=== PATIENT | female | born 1955 | race Caucasian/White ===

== ENCOUNTER 2023-10-09 15:04 | Inpatient (IN) | payer MEDICARE ==
[~2023-10-09] VITALS: Ht 165.1 cm; Wt 59.2 kg
--- NOTE | 2023-10-09 16:16 | NUR ---
PT ARRIVED FROM [facility] VIA POV WITH AT SIDE.WHEELCHAIR TO ROOM. WATCH, PHONE/LABORER SHELLFISH PROCESSING, AND UPPER DENTURES WITH PT. HOSPITAL RULES/ORIENTATION GONE OVER, NO QUESTIONS. LSO BRACE ON. PATCH ON L SIDE OF ABDOMEN. ASSESMENT COMPLETE. PT TO BATHROOM 1 ASSIST. PT BACK TO CHAIR FOR DINNER. CALL LIGHT WITHIN REACH, CHAIR ALARM ON.
[2023-10-09] MEDS ORDERED: ROXICODONE 55 MG/TAB PO (16:27)
[2023-10-09] MEDS ORDERED: POTASSIUM CH2 MEQ/ML PO (16:28)
[2023-10-09] MEDS ORDERED: ALDACTONE100 M1 PO (16:29)
[2023-10-09] MEDS ORDERED: oxyCODONE 5 MG TAB PO PRN (16:30)
[2023-10-09] MEDS ORDERED: Acetaminophen 325 MG TAB PO PRN (16:30)
[2023-10-09] MEDS ORDERED: Polyethylene Glycol 3350 Powder 17 GM PACKET PO PRN (16:30)
[2023-10-09] MEDS ORDERED: Cyclobenzaprine 10 MG TAB PO PRN (17:00)
--- NOTE | 2023-10-09 17:00 | NUR ---
PT REPORTED PAIN IN RIGHT WRIST, X-RAY SHOWED ARTHRITIS. BRACE APPLIED FOR COMFORT.
[2023-10-09 18:07] VITALS: BP 109/68
--- NOTE | 2023-10-09 19:00 | NUR ---
Report received from Tomas CAICEDO.
--- NOTE | 2023-10-09 23:55 | NUR ---
Patient has been resting in bed with eyes closed until this time. Up without assist and bedalarm alarming/patient already in bathroom when HAND LASTER into room. Voids and back to bed. Reminders given to call and await for assist to get up to prevent further falls and injury. Reports 10/10 pain to left rib cage and grimaces with movement. Is able to position self slowly up in bed. Roxycodone given for pain. Chocolate ensure given, states she didn't eat much for supper.
--- NOTE | 2023-10-10 01:30 | NUR ---
Patient now resting with eyes closed.
--- NOTE | 2023-10-10 06:04 | NUR ---
Patient up to the bathroom with walker and steady gait. Moderate tremors noted to upper extremities. See vitals. Reports pain 10/10 on pain scale and roxycodone 5 mg given. Reports acceptable pain is 0. Reviewed that with her FX she will have some pain. States yes to resting well this noc. No redness to buttucks noted this am. Rests back in bed.
[2023-10-10 06:18] VITALS: BP 112/79
[2023-10-10 07:51] LABS: BASO # 0.03 K/mm3 (0.02-0.10); EOS # 0.06 K/mm3 (0.04-0.40); EOS % 1.9 % (1.0-5.0); HEMATOCRIT 26.5 % (37.0-47.0); HEMOGLOBIN 8.8 g/dL (12.5-16.0); LYMPH# 0.31 K/mm3 (1.50-4.00); MEAN CELL VOLUME 99 fl (78-100); MEAN CORPUSCULAR HEMOGLOBIN 33 pg (27-31); MEAN CORPUSCULAR HGB CONC 33 g/dL (33-37); MEAN PLATELET VOLUME 8.8 fl (7.4-10.4); MONO # 0.64 K/mm3 (0.20-0.80); NEU # 2.11 K/mm3 (1.40-6.50); PLATELET COUNT 125 K/mm3 (130-400); RED BLOOD COUNT 2.68 M/mm3 (4.10-5.30); RED CELL DISTRIBUTION WIDTH 13.8 % (11.5-14.5); WHITE BLOOD COUNT 3.2 K/mm3 (4.8-10.8)
[2023-10-10] MEDS ORDERED: Magnesium Oxide 400 MG TAB PO SCH (08:00)
--- NOTE | 2023-10-10 08:00 | NUR ---
PT UP IN CHAIR FOR BREAKFAST. STATED THAT SHE SEPT WELL BUT WAS IN A LOT OF PAIN. PRN PAIN MEDICATION GIVEN. RATED 10/10. MEDICATION TAKEN PO IN APPLESAUCE DUE TO SOME DIFFICULTIES YESTERDAY WITH SWALLOWING PILLS, NO ISSUES. ASSESMENT COMPLETE. WRIST BRACE ON RIGHT WRIST, PT STATED THAT IT WAS FEELING A LOT BETTER THAN YESTERDAY. AT THIS NO OTHER WANTS OR NEEDS. PT LEFT IN CHAIR WITH ALARM ON, CALL LIGHT WITHIN REACH.
[2023-10-10 08:18] LABS: ALBUMIN 2.8 g/dL (3.4-4.8)
[2023-10-10 08:20] LABS: TOTAL PROTEIN 5.7 g/dL (6.2-8.1)
[2023-10-10 08:27] LABS: MAGNESIUM 1.7 mg/dL (1.60-2.60)
[2023-10-10 08:45] VITALS: BP 100/66
[2023-10-10] MEDS ORDERED: Multivitamin TAB PO SCH (09:00)
[2023-10-10] MEDS ORDERED: Thiamine 100 MG TAB PO SCH (09:00)
[2023-10-10] MEDS ORDERED: Folic Acid 1 MG TAB PO SCH (09:00)
[2023-10-10] MEDS ORDERED: Spironolactone 25 MG TAB PO SCH (09:00)
--- NOTE | 2023-10-10 09:00 | NUR ---
PT HEART RATE TACHY, PROVIDER NOTIFIED, MEDICATION GIVEN SEE MAY.
[2023-10-10] MEDS ORDERED: Carvedilol 3.125 MG TAB PO SCH ×2 (09:03→17:00)
[2023-10-10] MEDS ORDERED: Lidocaine 4% Topical Patch TP SCH (09:03)
[2023-10-10] MEDS ORDERED: Cyclobenzaprine 10 MG TAB PO PRN (13:11)
[2023-10-10 17:00] VITALS: BP 90/62
--- NOTE | 2023-10-10 17:00 | NUR ---
PROVIDER NOTIFIED OF BP 90/62. MEDICATION HELD, SEE MAR.
[2023-10-10 18:10] VITALS: BP 99/64
--- NOTE | 2023-10-10 19:00 | NUR ---
RECEIVED REPORT FROM MARIFER GERONIMO
--- NOTE | 2023-10-10 22:34 | NUR ---
PATIENT ALERT AND ORIENTED. TELE ON SHOWING NSR, OCCASIONALLY TACHY DEPENDING ON ACTIVITY OF PATIENT. LSO BRACE ON WHEN PATIENT IS UP. PATIENT REFUSING OT REMOVE BRACE TO RIGHT WRIST FOR SLEEP. CURRENTLY RESTING IN BED WATCHING TELEVISION. REPORTS PAIN 9/10 AND WANTS A PRN PAIN MED. ALSO WANTING ICE CREAM. CALL LIGHT IN REACH.
--- NOTE | 2023-10-11 01:06 | NUR ---
PATIENT RESTING QUIETLY IN BED. WAKES EASILY TO VERBAL STIMULI. BREATHING UNLABORED ON RA. CALL LIGHT IN REACH. BED ALARM ON
[2023-10-11 06:11] VITALS: BP 97/59
[2023-10-11 06:39] LABS: HEMATOCRIT 25.6 % (37.0-47.0); HEMOGLOBIN 8.5 g/dL (12.5-16.0); MEAN CELL VOLUME 100 fl (78-100); MEAN CORPUSCULAR HEMOGLOBIN 33 pg (27-31); MEAN CORPUSCULAR HGB CONC 33 g/dL (33-37); MEAN PLATELET VOLUME 8.3 fl (7.4-10.4); PLATELET COUNT 124 K/mm3 (130-400); RED BLOOD COUNT 2.57 M/mm3 (4.10-5.30); WHITE BLOOD COUNT 5.1 K/mm3 (4.8-10.8)
[2023-10-11 06:46] LABS: CALCIUM 8.9 mg/dL (8.3-10.5)
[2023-10-11 06:59] LABS: LYMPHOCYTE 7 % (20-51); MONOCYTE 16 % (3-10); NEUTROPHILS 77 % (42-75)
[2023-10-11 08:00] VITALS: BP 93/61
--- NOTE | 2023-10-11 11:53 | NUR ---
POTASSIUM LEVELS DISCUSSED WITH MINGES OF 4.8 AND 4.9 HE IS STILL WANTING TO HAVE POTASSIUM GIVEN AT THIS TIME.
[2023-10-11 16:34] VITALS: BP 91/59
--- NOTE | 2023-10-11 18:15 | NUR ---
Pt up to BR then returns to bed. Reports pain 10/10 to L back/ribs. Noted to have tears in eyes. Assist pt back to bed. Gave roxycodone per orders. Held coreg per parameters, BP 91/59.
--- NOTE | 2023-10-11 19:19 | NUR ---
received report from arturo fountain
--- NOTE | 2023-10-11 22:41 | NUR ---
pt alert and oriented, pt reports 10/10 pain. pt currently resting in bed after Lory pct assisted her to restroom and back to bed. pt reports irritation on right wrist brace, this nurse reviewed scan reports and notes and found that brace was for OA and was on for pt comfort. brace removed at this time and pt reported relief from irritation. pt now resting in bed with call light in reach and bed in lowest position and alarmed
--- NOTE | 2023-10-11 22:58 | NUR ---
report given to neel fountain
[2023-10-12 06:33] VITALS: BP 102/65
--- NOTE | 2023-10-12 07:16 | NUR ---
received report from wave rn
--- NOTE | 2023-10-12 08:00 | NUR ---
pt current systolic 102 and diastolic less than 70, pt has spironolactone and carvedilol ordered, provider joe would like to hold these medications at this time
[2023-10-12 08:14] VITALS: BP 102/69
--- NOTE | 2023-10-12 09:08 | NUR ---
PT ALERT AND ORIENTED X4, PT CURRENTLY RATING PAIN AT 10/10, LIDOCAINE PATCH PLACED ON LOWER LEFT SIDE OF BACK. PT WINCED AT REMOVAL OF PREVIOUS LIDOCAINE PATCH. PT REQUESTED TO MOVE TO THE BED AFTER MEDICATIONS AND ASSESSMENT. ASSESSMENT PERFORMED AND MEDICATIONS DELIVERED WITHOUT COMPLICATION. PT ASSISTED TO BED BY THIS NURSE, BED ALARMED AND CALL LIGHT IN REACH
--- NOTE | 2023-10-12 12:31 | NUR ---
pt currently tachycardic per telemetry monitoring system. pt carvedilol held this morning due to low bp. Pt current bp 109/72, this nurse reported to Provider Lynette pt status, provider lynette ordered carvedilol to be given at this time to reduce pt heart rate. verbal order repeat back to confirm
--- NOTE | 2023-10-12 13:03 | NUR ---
PT CONFUSED WHEN WOKEN FROM HER NAP, PT REPORTS 5/10 PAIN TO LOWER BACK AND RIBS. PT CONVERSED CLEARLY AND RECALLED TODAYS EVENTS WELL AFTER BEING AWAKE FOR A FEW MINUTES. MEDICATIONS DELIVERED. PT NOW RESTING IN BED WITH CALL LIGHT IN REACH, PT DENIES FURTHER NEEDS AT THIS TIME
--- NOTE | 2023-10-12 16:45 | NUR ---
PT SLEEPING WELL IN CHAIR, CALL LIGHT AT PT SIDE AND CHAIR ALARM ON. PT HAS BEEN SLEEPY MOST OF THE AFTERNOON
[2023-10-12 18:00] VITALS: BP 105/65
--- NOTE | 2023-10-12 19:06 | NUR ---
report to bon rn
[2023-10-12 20:52] VITALS: BP 105/72
--- NOTE | 2023-10-12 21:00 | NUR ---
Patient resting in bed alert and oriented at this time. HS meds along with steven reviewed and given. Was informed to give held dose of coreg at this time per Nakul RN and given. BP 105/72 HR 105.
[2023-10-13 05:29] VITALS: BP 100/68
--- NOTE | 2023-10-13 06:12 | NUR ---
Patient reports she did get sleep this noc. "Didn't hear the TV even". Flexeril given for 7 left rib cage pain.
[2023-10-13 08:00] VITALS: BP 95/61
--- NOTE | 2023-10-13 12:49 | NUR ---
PT IS NOT USING CALL LIGHT WHEN ARRIVING TO ROOM PT WAS ALMOST TO BATHROOM AND WOULD NOT STOP FOR WALKER. SHE IS UNSTEADY AND I DID TALK WITH HER ABOUT MAKING SURE SHE DID NOT FALL. SHE WAS NOT INTERESTED IN CONVERSATION.
--- NOTE | 2023-10-13 14:20 | NUR ---
PT. IS GETTING UP WITHOUT USING CALL LIGHT AND WAS IN BATHROOM ON ARRIVAL TO ROOM.
[2023-10-13 16:55] VITALS: BP 91/60
--- NOTE | 2023-10-13 18:50 | NUR ---
Pt resting in bed. I did talk with daughter and mentioned pt has not been using call light and getting up without assistance. Pt when asked states this is because of Jarod. Pt voiced she is not happy since Jarod did not come in.
--- NOTE | 2023-10-13 20:30 | NUR ---
Report from MARIFER Bar. Patient asleep, easily aroused but not interactive. Does not answer orientation questions except to say "I don't know".
--- NOTE | 2023-10-13 20:40 | NUR ---
Patient bed alarm sounding, patient sitting on the edge of bed. Refuses TLSO brace, ambulates to the bathroom with walker and SBA. Brace applied as patient sat on the toilet. Nursing attempted to ask patient orientation questions again at this time. Patient oriented to self only. Assisted back to bed. Bed alarm on and call light within reach. Instructed to call before getting up.
--- NOTE | 2023-10-13 23:00 | NUR ---
Patient bed alarm sounding, patient is again sitting on the edge of the bed. Asks to walk to the bathroom. Brace applied, patient ambulates to the bathroom with walker and SBA. Patient seems more alert than previous assessment. Orientation questions asked again. Patient oriented to self, place, situation, and year, not month. Patient assisted back to bed. States pain is 10/10. PRN oxy and tylenol given. Bed alarm on, call light within reach.
[2023-10-14 05:43] VITALS: BP 101/64
--- NOTE | 2023-10-14 11:21 | NUR ---
FACUNDO PEDRAZA NOTIFIED OF PATIENT BEING SLIGHTLY TACHYCARDIC, NEW ORDERS FOR VITAL SIGNS Q4 HOURS. PT HAS BEEN RUNNING TACHY, SO NO OTHER ORDERS AT THIS TIME.
[2023-10-14 14:13] VITALS: BP 97/63
[2023-10-14 17:47] VITALS: BP 92/65
[2023-10-14 22:08] VITALS: BP 96/59
--- NOTE | 2023-10-15 01:43 | NUR ---
Report per [facility] Pt leaned forward and unplugged SCD air tubes, then exited bed without calling, staff immediatly starting walkling to pt room but by the time staff made it to pt room pt had already left her bed without walker or back brace and walked to the restroom. pt has been thouroughly educated on the importance of calling to allow staff to assist pt to the restroom safely. Pt is noncompliant with staff education/requests for safe ambulation and back brace. [facility] has placed pt on more sensitive bed alarm level to allow staff time to reach room before pt has left the bed.
[2023-10-15 01:45] VITALS: BP 98/61
--- NOTE | 2023-10-15 03:54 | NUR ---
pt up at this time to use the restroom, jia pct attempted to place back brace on. pt states "that thing is not going on me", gait belt donned and pt assisted to restroom at this time with walker
[2023-10-15 05:54] VITALS: BP 109/68
--- NOTE | 2023-10-15 09:00 | NUR ---
Pt Ox4, VSS. Coreg held r/t DBP 68. Pt reports "moderate" pain to L back/ribs. Also noted to have firm/distended abdomen. Reports ascities is more pronounced than her "normal" and she feels it is making her SOB and increasing her pain.
[2023-10-15] MEDS ORDERED: Meloxicam 7.5 MG TAB PO SCH (10:11)
[2023-10-15 10:15] VITALS: BP 104/66
[2023-10-15 12:06] LABS: HEMATOCRIT 29.2 % (37.0-47.0); HEMOGLOBIN 9.6 g/dL (12.5-16.0); MEAN CELL VOLUME 99 fl (78-100); MEAN CORPUSCULAR HEMOGLOBIN 32 pg (27-31); MEAN CORPUSCULAR HGB CONC 33 g/dL (33-37); MEAN PLATELET VOLUME 8.4 fl (7.4-10.4); PLATELET COUNT 174 K/mm3 (130-400); RED BLOOD COUNT 2.96 M/mm3 (4.10-5.30); RED CELL DISTRIBUTION WIDTH 13.9 % (11.5-14.5); WHITE BLOOD COUNT 6.6 K/mm3 (4.8-10.8)
[2023-10-15 12:35] LABS: BAND 5 % (0-10); NEUTROPHILS 76 % (42-75)
[2023-10-15 12:36] LABS: LYMPHOCYTE 5 % (20-51); METAMYELOCYTE 1 % (0-0); MONOCYTE 11 % (3-10)
[2023-10-15 12:37] LABS: HYPOCHROMIA 1+; SCHISTOCYTES 1+
[2023-10-15 13:15] LABS: CALCIUM 9.2 mg/dL (8.3-10.5)
[2023-10-15 13:16] LABS: TOTAL PROTEIN 6.4 g/dL (6.2-8.1)
[2023-10-15 13:18] LABS: TOTAL BILIRUBIN 0.9 mg/dL (0.2-1.2)
[2023-10-15 13:38] VITALS: BP 107/69
[2023-10-15] MEDS ORDERED: Furosemide 40 MG TAB PO SCH (16:00)
[2023-10-15 17:38] VITALS: BP 111/73
--- NOTE | 2023-10-15 17:57 | NUR ---
Abdomen US complete, pt scheduled for paracentesis on Friday10/21/23. Restarted lasix. Explained to pt the need to collect I/O, she acknowledged understanding, will need to be reinforced. Pt BP 111/73 @ 1700. Pt given coreg per orders, parameters met. Pt reports it is difficult to eat/drink as abdomen is so full/distended. Pt up ambulating in halls with staff, trying to move extra fluid.
--- NOTE | 2023-10-15 19:10 | NUR ---
RECEIVED REPORT FROM MARIFER MEMBRENO
[2023-10-15 22:00] VITALS: BP 112/66
--- NOTE | 2023-10-15 22:39 | NUR ---
PATIENT IS A&O X 4. BREATHING UNLABORED ON RA. HR IRREGULAR. NO EDEMA NOTED TO BLE. ABDOMEN IS VERY DISTENDED AND FIRM. PATIENT EXITED BED WITHOUT CALLING STATING SHE WAS TIRED OF BEING IN BED. LSO APPLIED AND WALKED IN HALLS. ONCE RETURNED TO ROOM SHE CHOSE TO SIT IN RECLINER. LATER SHE THEN EXITED RECLINER WITHOUT CALLING TO GOT TO TOILET. SHE IS MILDLY AGITATED WITH STAFF FOR HELPING HER. THUS FAR SHE HAS HAD 600 CC FOUL URINE OUT. CALL LIGHT IN REACH. ALARMS ON AND WORKING.
--- NOTE | 2023-10-16 01:16 | NUR ---
PATIENT RESTING QUIETLY IN BED. BREATHING UNLABORED ON RA. CALL LIGHT IN REACH. BED ALARM ON
[2023-10-16 02:34] VITALS: BP 99/63
[2023-10-16 05:33] VITALS: BP 127/80
--- NOTE | 2023-10-16 06:22 | NUR ---
PATIENT RESTING QUIELTY IN BED. CALL LIGHT IN REACH. BED ALARM ON
--- NOTE | 2023-10-16 07:40 | NUR ---
Pt sitting up in recliner. Is refusing to wear LSO brace while OOB. Abdominal distention has decreased overnight. Abdomen not firm. No edema noted to BLE at this time. Pt reports that she still feels "bloated" but pain is decreased at this time, reports pain 5/10 to L ribs/back. Notified provider of above and that pt urine output has not increased since adding lasix yesterday. Overnight urine output 350ml + 1x unmeasured.
[2023-10-16] MEDS ORDERED: Furosemide 40 MG TAB PO ONE (08:00)
--- NOTE | 2023-10-16 09:49 | NUR ---
Spoke with Dr. Pat Kramer's nurse. She spoke with Dr. Stewart regarding appointment / follow up with ortho. Dr. Stewart would like to see her following swing bed discharge. She does not need xrays or anything at this time. If transportation is an issue for Elissa. Her care may be transfered to the [facility] in [place]. Phone number for Dr. Stewart [phone] option 1.
[2023-10-16 09:51] VITALS: BP 116/86
--- NOTE | 2023-10-16 09:54 | NUR ---
is okay to transfer care to [facility]
[2023-10-16] MEDS ORDERED: Albuterol 90 MCG/PUFF MDI IH PRN (10:00)
[2023-10-16 14:09] VITALS: BP 115/75
[2023-10-16 17:06] VITALS: BP 111/69
[2023-10-16 21:49] VITALS: BP 99/63
[2023-10-17 02:15] VITALS: BP 91/59
--- NOTE | 2023-10-17 05:14 | NUR ---
THIS AM PCT NOTED SOME DRIED BLOOD AROUND PTS MOUTH, PT WAS ASKED BY PCT IF THAT WAS NORMAL, PT STATED THAT SOMETIMES SHE BLEEDS AT NIGHT. PT IS ASYMPTOMATIC, NO CONTINUED BLEEDING NOTED. PCT PATRICIA Canada, NOTIFIED THIS RN.
[2023-10-17 05:46] VITALS: BP 100/67
[2023-10-17 07:40] LABS: BASO # 0.04 K/mm3 (0.02-0.10); EOS # 0.17 K/mm3 (0.04-0.40); EOS % 3.8 % (1.0-5.0); HEMATOCRIT 26.2 % (37.0-47.0); HEMOGLOBIN 8.7 g/dL (12.5-16.0); LYMPH# 0.37 K/mm3 (1.50-4.00); MEAN CELL VOLUME 97 fl (78-100); MEAN CORPUSCULAR HEMOGLOBIN 32 pg (27-31); MEAN CORPUSCULAR HGB CONC 33 g/dL (33-37); MEAN PLATELET VOLUME 8.3 fl (7.4-10.4); MONO # 0.71 K/mm3 (0.20-0.80); NEU # 3.05 K/mm3 (1.40-6.50); PLATELET COUNT 168 K/mm3 (130-400); RED BLOOD COUNT 2.71 M/mm3 (4.10-5.30); RED CELL DISTRIBUTION WIDTH 13.6 % (11.5-14.5); WHITE BLOOD COUNT 4.4 K/mm3 (4.8-10.8)
[2023-10-17 08:33] LABS: PH-URINE 5.5 (5.0 - 8.0); URINE APPEARANCE CLOUDY (CLEAR); URINE BILIRUBIN NEGATIVE (NEGATIVE); URINE COLOR YELLOW (YELLOW); URINE GLUCOSE NEGATIVE (NEGATIVE); URINE KETONE NEGATIVE (NEGATIVE); URINE PROTEIN(semi-quant) 1+ (NEGATIVE)
[2023-10-17 08:34] LABS: URINE BLOOD 2+ (NEGATIVE); URINE LEUKOCYTE ESTERASE 3+ (NEGATIVE); URINE NITRATE NEGATIVE (NEGATIVE)
[2023-10-17 08:36] LABS: URINE WBC >50 /hpf (0-3)
--- NOTE | 2023-10-17 08:40 | NUR ---
Pt sitting up in recliner. Is Ox4, reports pain 7/10. Pain rx given. Held Coreg for BP 100/67 per parameters. Removed and applied new lidocaine patch to L mid-back per pt instruction. Removed R wrist splint. Instructed pt to leave off until she works with therapy and to remove each night. Noted a reddened/abraised area to posterior webbed area between thumb and forefinger. Placed bandaid for protection. Obtained UA this AM for urinary frequency, urgency and burning.
[2023-10-17 10:03] VITALS: BP 103/68
[2023-10-17] MEDS ORDERED: Nitrofurantoin (Mono/Macro) 100 MG CAPSULE PO SCH (10:25)
[2023-10-17 11:28] LABS: CALCIUM 8.6 mg/dL (8.3-10.5)
[2023-10-17 12:57] LABS: MAGNESIUM 1.57 mg/dL (1.60-2.60)
[2023-10-17 13:35] VITALS: BP 116/79
[2023-10-17] MEDS ORDERED: Magnesium Oxide 400 MG TAB PO SCH (17:00)
[2023-10-17 17:05] VITALS: BP 116/73
--- NOTE | 2023-10-17 17:44 | NUR ---
Pt VS WNL this afternoon, Coreg given per orders. Pt has become more confused as day progressed, not calling for assistance, can't find phone, can't find remote. Urine resulted, started PO abx. Ambulated in halls with staff and therapy. Pain not well controlled this afternoon. PO, topical and hot/cold therapy applied. Abdomen firm, distended, pt with c/o pruritis. I/O 2490ml/2050ml.
--- NOTE | 2023-10-17 19:54 | NUR ---
Report received from Edyta CAICEDO. Patient was up ambulating in halls with ENVELOPE CUTTER at shift change. Patient is now resting with eyes closed. Bed alarm on. Call light in reach.
--- NOTE | 2023-10-17 20:40 | NUR ---
Set off bed alarm. CORRECTIONAL MAINTENANCE TECHNICIAN into intervene and take patient to BR after encouraging to wear brace and gait belt. Rests now in bed. A/O x2. States Month as July and year as 1999. Rates pain as 12/17, requests and given oxycodone, takes whole PO without difficulty. Assessment completed. Lungs CTA, diminished in bases. Denies cough. States some SOA with exertion. Has 2+ edema to R foot. Elevated on pillow, SCD's in place. Bed alarm on. Call light in reach.
[2023-10-17 22:05] VITALS: BP 98/63
[2023-10-18 01:32] VITALS: BP 97/62
--- NOTE | 2023-10-18 01:36 | NUR ---
Up to BR with assist of INVESTMENT CONSULTANT. Requests and given analgesic for reported pain 10/10 to L rib cage and back area.
--- NOTE | 2023-10-18 05:40 | NUR ---
Rested well this shift. Medication provided for pain PRN. B/P soft 90's/60's. Asymptomatic.
[2023-10-18 05:45] VITALS: BP 92/60
--- NOTE | 2023-10-18 07:01 | NUR ---
Report to Lynn CAICEDO.
--- NOTE | 2023-10-18 09:40 | NUR ---
Patient resting in chair. A&O to place, person and situation. Promted many times to take medication. Swallowed pills whole with water. LSO brace on. Reports she did not sleep well last night. Unpleasant with staff. Rising from chair without assistance and ambulating from chair to restroom. Reminded to use call light when needing assistance. Patient refusing. Encouraged to sit in chair to eat breakfast. Patient states, "why do I have to do that? Why can't I eat in bed." Ambulated SBA with walker from bed to chair. Refused to use gait belt with transfer. Encouraged to ambulate with staff, declined at this time. Chair in locked position. Call light within reach.
--- NOTE | 2023-10-18 09:46 | NUR ---
Refusing incentive spirometry
[2023-10-18 10:11] VITALS: BP 101/61
--- NOTE | 2023-10-18 10:11 | NUR ---
Chair alarm sounding. Upon entering the room, patient in bathroom. When encouraged to use call light she states, "No!" "You're all in my business." Assisted back to chair. Chair in locked position. Call light within reach.
--- NOTE | 2023-10-18 11:19 | NUR ---
Chair alarm sounding. Upon entering room patient ambulating from chair to bathroom with no assistance. Refused gait belt. Encouraged to use call button before getting up. SBA from bathroom to chair. Chair in locked position. Call light within reach.
[2023-10-18 14:00] VITALS: BP 93/60
--- NOTE | 2023-10-18 16:30 | NUR ---
Chair alarm sounding. Upon entering room, patient ambulating from chair to bathroom. Refusing to use call light when needing assistance. Nurse at bedside providing education. Encouraged to use call light. Agrees to use call light. SBA to chair. Refused gait belt. Chair in locked position. Call light within reach.
[2023-10-18 18:04] VITALS: BP 104/69
--- NOTE | 2023-10-18 19:53 | NUR ---
Refused gait belt when walking to BR from recliner and back to bed.
[2023-10-18 21:51] VITALS: BP 95/70
[2023-10-19 02:00] VITALS: BP 85/58
--- NOTE | 2023-10-19 02:34 | NUR ---
pt 0200 BP registered at 85/58, pt is asymptomatic, hx of soft to low bp, daily bp meds have been held for the last couple of days. pt denies feeling dizziness,lightheadedness or feeling faint. notified, no new orders at this time.
[2023-10-19 05:49] VITALS: BP 98/61
--- NOTE | 2023-10-19 08:01 | NUR ---
REPORT FROM MARIFER ARGUETA. PT. UP IN CHAIR WITH BRACE ON. ALERT AND ORIENTED THIS AM. DENIES ANY NEEDS OR CONCERNS.
[2023-10-19 09:50] VITALS: BP 102/71
[2023-10-19 10:00] VITALS: BP 93/69
[2023-10-19 14:04] VITALS: BP 94/60
[2023-10-19 17:00] VITALS: BP 98/64
--- NOTE | 2023-10-19 18:03 | NUR ---
PT. HAS BEEN ORIENTED THROUGHOUT THE DAY. TOOK PO PAIN MEDS TWICE FOR RIB PAIN AND REPORTED THAT THE PILLS CONTROLLED THE PAIN. DENIES ANY NEEDS OR CONCERNS.
--- NOTE | 2023-10-19 19:29 | NUR ---
Report received from Augusta CAICEDO. Patient calls and requests analgesic for pain to back/ribs 10/17. A/O x4. Denies SOA or cough. States B&B are "ok". Patient has set off chair alarm x2 since shift change and ambulated to BR without brace or gaitbelt before staff got to room. Education provided numerous times by staff. Assessment completed. Ensure provided and drank 100%. Denies further wants or needs. Chair alamrm on. Call light in reach.
--- NOTE | 2023-10-19 19:47 | NUR ---
Discussed with Lynette LOREDO due to gabriela being DC'd, if we are to continue K+. Per Lynette mena at this time.
--- NOTE | 2023-10-19 20:12 | NUR ---
Sets off chair alarm, MS SQL DBA in to room. Patient up and ambulating to BR. Refused gaitbelt/ and back brace, and walker. Assisted to BR and to bed per request. Used I.S. with encouragement. Pulled 5 reps. Bed alarm on. Call light in reach.
[2023-10-20 05:33] LABS: HEMATOCRIT 27.4 % (37.0-47.0); MEAN CELL VOLUME 95 fl (78-100); MEAN CORPUSCULAR HEMOGLOBIN 31 pg (27-31); MEAN CORPUSCULAR HGB CONC 33 g/dL (33-37); MEAN PLATELET VOLUME 8.1 fl (7.4-10.4); PLATELET COUNT 168 K/mm3 (130-400); RED BLOOD COUNT 2.88 M/mm3 (4.10-5.30); RED CELL DISTRIBUTION WIDTH 13.7 % (11.5-14.5); WHITE BLOOD COUNT 4.3 K/mm3 (4.8-10.8)
--- NOTE | 2023-10-20 05:40 | NUR ---
Rested well all shift. Remains non-compliant with brace and gait belt. Medication provided PRN for pain.
[2023-10-20 05:42] LABS: ALBUMIN 2.9 g/dL (3.4-4.8)
[2023-10-20 05:43] LABS: CALCIUM 9.1 mg/dL (8.3-10.5)
[2023-10-20 05:44] LABS: TOTAL PROTEIN 5.9 g/dL (6.2-8.1)
[2023-10-20 05:46] LABS: TOTAL BILIRUBIN 0.7 mg/dL (0.2-1.2)
[2023-10-20 05:49] VITALS: BP 97/64
[2023-10-20 05:56] LABS: BAND 1 % (0-10); LYMPHOCYTE 7 % (20-51); MONOCYTE 20 % (3-10); NEUTROPHILS 67 % (42-75)
--- NOTE | 2023-10-20 06:38 | NUR ---
Report to Dipika CAICEDO.
--- NOTE | 2023-10-20 11:45 | NUR ---
Pt was placed on tele at this time for chest pain. She did not mention this to me but did tell Dr. Perez she was having chest pain last hs. She has not complained of chest pain after this incident.
--- NOTE | 2023-10-20 11:59 | NUR ---
She is setting in recliner. SHE IS ANXOUS TO SEE SPOUSE HE HAS NOT BEEN HERE FOR QUITE A FEW DAYS. PT DENIES PAIN. SHE IS STATING SHE FEELS FULL BUT SHE IS SCHEDULED FOR PARACENTESIS ON FRIDAY. HER ABD GIRTH HAS INCREASED.
--- NOTE | 2023-10-20 16:25 | NUR ---
PT NEEDING REMINDER TO PLACE CALL LIGHT ON AND WAIT FOR STAFF TO ASSIST.
[2023-10-20 17:18] VITALS: BP 105/70
[2023-10-21 05:32] VITALS: BP 99/65
[2023-10-21 08:07] LABS: PROTHROMBIN TIME 10.8 SECONDS (9.0-12.0)
[2023-10-21 09:31] VITALS: BP 105/71
--- NOTE | 2023-10-21 09:49 | NUR ---
REPORT RECEIVED FROM MARIFER HARDEN. PT WAS TAKEN DOWN FOR PARACENTESIS THIS MORNING, BUT THERE WAS NOT ENOUGH FLUID TO PROCEED SO PROCEDURE WAS CANCELED. PT REPORTING PAIN AT 5/10. DENIES CHEST PAIN THIS MORNING, HAS BEEN SINUS RHYTHM TO SINUS TACHY ON TELE.
--- NOTE | 2023-10-21 16:33 | NUR ---
PT WENT FOR WALK IN HALLS, REPORTING PAIN 10/10 BEFORE WALK BUT DENIED PAIN MEDICATIONS AT THIS TIME.
[2023-10-21 17:18] VITALS: BP 102/64
--- NOTE | 2023-10-22 01:11 | NUR ---
PT WOKE UP CONFUSED, JUMPED OUT OF BED, BED ALARM WENT OFF THIS RN MADE IT PROMPTLY TO PT ROOM, BY THE TIME THIS RN ARRIVED TO ROOM PT WAS ALREADY AT DOORWAY AGITATED CONFUSD AND ANGSTY, THIS RN TRIED TO REORIENT PT TO LOCATION, PT STATED FEELING LIKE SHE WANTED TO PUNCH SOMEBODY. THIS RN WITH THE HELP OF JOSHUA Canada. WHERE ABLE TO TO REORIENT PT AND GET HER BACK IN HE ROOM. PT SAT IN CHAIR FOR A BIT OF TIME, JOSHUA Canada OFFERED A WALK TO PT AND PT ACCEPTED BUT REFUSED TO WEAR TLSO BRACE. PT WAS RETUNED TO ROOM AND TO CHAIR BY JOSHUA Canada. CHAIR IS ALARMED CALL LIGHT IN REACH
[2023-10-22 05:34] VITALS: BP 105/61
[2023-10-22 06:42] LABS: HEMATOCRIT 25.6 % (37.0-47.0); HEMOGLOBIN 8.5 g/dL (12.5-16.0); MEAN CELL VOLUME 95 fl (78-100); MEAN CORPUSCULAR HEMOGLOBIN 32 pg (27-31); MEAN CORPUSCULAR HGB CONC 33 g/dL (33-37); MEAN PLATELET VOLUME 8.6 fl (7.4-10.4); PLATELET COUNT 140 K/mm3 (130-400); RED CELL DISTRIBUTION WIDTH 13.5 % (11.5-14.5); WHITE BLOOD COUNT 4.8 K/mm3 (4.8-10.8)
[2023-10-22 07:01] LABS: ALBUMIN 2.8 g/dL (3.4-4.8)
[2023-10-22 07:04] LABS: TOTAL PROTEIN 5.7 g/dL (6.2-8.1)
[2023-10-22 07:06] LABS: TOTAL BILIRUBIN 0.6 mg/dL (0.2-1.2)
[2023-10-22 07:10] LABS: MAGNESIUM 1.7 mg/dL (1.60-2.60)
[2023-10-22 07:34] LABS: LYMPHOCYTE 13 % (20-51); MONOCYTE 14 % (3-10); NEUTROPHILS 70 % (42-75)
--- NOTE | 2023-10-22 09:30 | NUR ---
Pt awake and alert. Is oriented to self only. Aware that she is in a hospital but unable to verbalize which hospital or why. Reports month and year as July 1987. Reorient pt.
--- NOTE | 2023-10-22 15:30 | NUR ---
HENRIETTA WOULD LIKE TO GO HOME WITH OUTPATIENT THERAPY ON October. AT 10;00 AM.
--- NOTE | 2023-10-22 16:44 | NUR ---
two day notice given to Elissa. She states she will not sign until she can talk to Jarod about it.
[2023-10-22 17:15] VITALS: BP 100/69
--- NOTE | 2023-10-22 18:49 | NUR ---
report received from josue fountain
[2023-10-22] MEDS ORDERED: Melatonin 3 MG TAB PO SCH (20:00)
--- NOTE | 2023-10-22 20:21 | NUR ---
pt assisted to restroom by tegan Mcdermott. Pt removed tslo brace and gait prior to entering restroom despite staff attempts to keep the safety measures in place. pt ignored staff when staff asked her to leave them on
--- NOTE | 2023-10-22 20:28 | NUR ---
pt alert and orietned to self, pt stated she did not know what day or year it is, pt reoriented. pt assessed and medications delivered without complications. no pain reported at this time. pt education network operations lead light and TSLO brace performed. pt agreeable to call before needing to get up. 3rd bed rail up on left lower side of bed at this time. pt now resting in bed with call light in reach, pt denies any further needs or concerns at this time. bed in lowest position and alarmed
--- NOTE | 2023-10-23 05:42 | NUR ---
pt has hemorrhoids after going to the restroom this morning, provider Lynette notified. this nurse requests intervention at this time. pt returned to bed safely by PCT venkata
[2023-10-23 05:44] VITALS: BP 100/61
[2023-10-23] MEDS ORDERED: Hydrocortisone 2.5% Cream 28.35 GM TUBE TOP SCH (06:17)
--- NOTE | 2023-10-23 06:56 | NUR ---
report to arturo fountain
[2023-10-23] MEDS ORDERED: Cefuroxime 250 MG TAB PO SCH (09:51)
[2023-10-23 16:48] VITALS: BP 101/67
[2023-10-24 06:04] VITALS: BP 97/67
[2023-10-24] MEDS ORDERED: CEFUROXIME AXE250 MG PO (08:47)
[2023-10-24] MEDS ORDERED: MAGNESIUM OXID400 MG PO (08:52)
[2023-10-24] MEDS ORDERED: THIAMINE HCL100 M1 PO (08:53)
[2023-10-24] MEDS ORDERED: FOLIC ACID1 MG PO (08:53)
[2023-10-24] MEDS ORDERED: FUROSEMIDE40 MG PO (08:55)
[2023-10-24 09:59] VITALS: BP 107/69
--- NOTE | 2023-10-24 10:10 | NUR ---
DISCHARGE INSTRUCTIONS REVIEWED WITH PATIENT AND SPOUSE. QUESTIONS ANSWERED. PT ALERT AND ORIENTED. ALL BELONGINGS GATHERED AND PACKED INTO BELONGINGS BAGS. TLSO ON. SKIN WAR AND DRY. PT AMBULATED TO ER ENTRANCE WITH CERTIFIED REGISTERED DENTAL ASSISTANT AND MEET SPOUSE IN THE DRIVEWAY.
== END 2023-10-24 10:20 | disposition home or self-care (01) | DRG 206 ==
LOC: MED/SURG 15:04
PROVIDERS: Family Medicine; ADMIT Family Medicine
DX: S22.32XA Fracture of one rib, left side, initial encounter for closed fracture (principal); S32.030A Wedge compression fracture of third lumbar vertebra, initial encounter for closed fracture; R18.8 Other ascites; N39.0 Urinary tract infection, site not specified; E87.1 Hypo-osmolality and hyponatremia; K76.6 Portal hypertension; S42.002A Fracture of unspecified part of left clavicle, initial encounter for closed fracture; W19.XXXA Unspecified fall, initial encounter; I25.2 Old myocardial infarction; R53.81 Other malaise; E83.42 Hypomagnesemia; D69.6 Thrombocytopenia, unspecified; D64.9 Anemia, unspecified; I10 Essential (primary) hypertension; M25.531 Pain in right wrist
CPT/HCPCS: J1650